=== PATIENT | female | born 1940 | race Caucasian/White ===

== ENCOUNTER 2021-01-04 09:12 | Inpatient (IN) | payer MEDICARE ==
[2021-01-04 09:53] LABS: #Basophils 0.1 10x3/uL (0.0-0.2); #Eosinphils 0.1 10x3/uL (0.0-0.5); #Neutrophils 9.2 10x3/uL (1.5-8.4); %Basophils 0.4 % (0.0-2.0); %Lymphocytes 13.1 % (18.0-47.0); %Monocytes 8.1 % (0.0-10.0); %Neutrophils 76.8 % (40.0-75.0); Hemoglobin 13.1 g/dL (12.0-15.5); Mean Corpuscular HGB CONC 31.6 g/dL (32.0-36.0); Mean Corpuscular Hemoglobin 30.4 pg (27.0-33.0); Mean Corpuscular Volume 96.1 fl (81.6-98.3); Platelet Count 348 10x3/uL (150-450); RBC Distribution Width 12.5 % (11.5-14.5); Red Blood Cell (RBC) Count 4.31 10x6/uL (3.90-5.03); White Blood Cell (WBC) Count 11.9 10x3/uL (3.5-10.5)
[2021-01-04 10:23] LABS: ALT (SGPT) 17 U/L (8-55); AST (SGOT) 20 U/L (5-34); Albumin 4.1 g/dL (3.4-4.8); Alkaline Phosphatase 57 U/L (40-110); Anion Gap 17 mmol/L (10-20); BUN (Urea Nitrogen) 19 mg/dL (9.8-20.1); Bilirubin, Total 0.5 mg/dL (0.2-1.2); CK (CPK) 115 U/L (29-168); Calc. Creatinine Clearance 0 mL/min (70-130); Calcium 9.5 mg/dL (7.8-10.44); Carbon Dioxide 24 mmol/L (23-31); Chloride 106 mmol/L (98-107); Globulin 3.2 g/dL (2.4-3.5); Glucose 159 mg/dL (83-110); Potassium 4.7 mmol/L (3.5-5.1); Protein, Total 7.3 g/dL (5.8-8.1); Sodium 142 mmol/L (136-145)
[2021-01-04] MEDS ORDERED: cefTRIAXone\\ROCEPHIN 1 GM VIAL ONE (11:01)
[2021-01-04] MEDS ORDERED: Azithromycin 500 MG VIAL ONE (11:02)
[2021-01-04 11:22] LABS: Bilirubin Neg (Negative); Blood, Urine Negative (Negative); Clarity Slightly Cloudy (Clear); Glucose, Urine (Dipstick) Normal (Negative); Ketone, Urine Negative (Negative); Leukocyte 100 (Negative); Nitrite Negative (Negative); Protein, Urine (Dipstick) 30 mg/dl (Neg-Trace); Urobilinogen Normal mg/dL (Less than 2)
[2021-01-04 11:48] LABS: Bacteria/HPF 1+ HPF (None Seen); RBC/HPF 0-3 HPF (0-3); Squamous Epithelial 0-3 HPF (0-3)
[2021-01-04 12:44] LABS: SARS-CoV-2 NAA Rapid Test Not Detected (NotDetected)
[2021-01-04] MEDS ORDERED: Ondansetron PF 4 MG/2 ML Vial IVP PRN (13:26)
[2021-01-04] MEDS ORDERED: Senokot S 8.6-50 MG TAB PO PRN (13:26)
[2021-01-04] MEDS ORDERED: Guaifenesin DM 100-10/5 ML UDCUP PO PRN (13:26)
[2021-01-04] MEDS ORDERED: Calcium Carbonate 500 MG ChewTAB PO PRN (13:26)
[2021-01-04] MEDS ORDERED: Acetaminophen 325 MG TAB PO PRN (13:26)
[2021-01-04] MEDS ORDERED: Bisacodyl 5 MG TAB PO PRN (13:26)
[2021-01-04] MEDS ORDERED: cefTRIAXone\\ROCEPHIN 1 GM in Sodium Chloride 0.9% 100 ML IVPB SCH (13:30)
[2021-01-04 14:09] LABS: Troponin I Less than 0.010 ng/mL (< 0.028)
[2021-01-04 16:10] LABS: Troponin I Less than 0.010 ng/mL (< 0.028)
[2021-01-04] MEDS ORDERED: metFORMIN 500 MG TAB ONE (17:08)
[2021-01-04] MEDS: metFORMIN 500 MG TAB PO SCH (17:12)
[2021-01-04] MEDS: Simvastatin 10 MG TAB PO SCH (21:42)
[2021-01-04] MEDS: Calcium Carbonate 600 MG + Vit D TAB PO SCH (21:42)
[2021-01-04 22:27] VITALS: BMI 35.2
[2021-01-05 03:53] LABS: #Eosinphils 0.2 10x3/uL (0.0-0.5); #Monocytes 1.1 10x3/uL (0.0-1.1); #Neutrophils 8.9 10x3/uL (1.5-8.4); %Basophils 0.3 % (0.0-2.0); %Eosinophils 1.3 % (0.0-6.0); %Lymphocytes 13.4 % (18.0-47.0); %Monocytes 9.3 % (0.0-10.0); %Neutrophils 75.2 % (40.0-75.0); Hemoglobin 11.6 g/dL (12.0-15.5); Mean Corpuscular HGB CONC 31.9 g/dL (32.0-36.0); Mean Corpuscular Hemoglobin 30.9 pg (27.0-33.0); Mean Corpuscular Volume 96.8 fl (81.6-98.3); Mean Platelet Volume 11.7 fl (7.4-10.4); Platelet Count 302 10x3/uL (150-450); RBC Distribution Width 12.7 % (11.5-14.5); Red Blood Cell (RBC) Count 3.76 10x6/uL (3.90-5.03); White Blood Cell (WBC) Count 11.8 10x3/uL (3.5-10.5)
[2021-01-05 03:58] LABS: Lactic Acid 2.2 mmol/L (0.5-2.2)
[2021-01-05 03:59] LABS: Anion Gap 15 mmol/L (10-20); BUN (Urea Nitrogen) 14 mg/dL (9.8-20.1); Calc. Creatinine Clearance 74 mL/min (70-130); Calcium 9.6 mg/dL (7.8-10.44); Carbon Dioxide 22 mmol/L (23-31); Chloride 110 mmol/L (98-107); Glucose 116 mg/dL (83-110); Potassium 4.6 mmol/L (3.5-5.1); Sodium 142 mmol/L (136-145)
[2021-01-05] MEDS: metFORMIN 500 MG TAB PO SCH ×2 (08:45→16:45)
[2021-01-05] MEDS: Magnesium Oxide 400 MG TAB PO SCH (09:45)
[2021-01-05] MEDS: NIFEdipine XL 60 MG TAB PO SCH (09:45)
[2021-01-05] MEDS: Ramipril 5 MG CAP PO SCH (09:45)
[2021-01-05] MEDS: Cholecalciferol 1,000 UNITS (25 MCG) TAB PO SCH (09:45)
[2021-01-05] MEDS: Calcium Carbonate 600 MG + Vit D TAB PO SCH ×2 (09:45→21:53)
[2021-01-05] MEDS: Aspirin 81 mg Enteric Coated Tablet PO SCH (09:45)
[2021-01-05] MEDS ORDERED: metFORMIN 500 MG TAB ONE (10:05)
[2021-01-05] MEDS ORDERED: Aspirin Chewable 81 MG TAB ONE (10:05)
[2021-01-05] MEDS ORDERED: Cholecalciferol 1,000 UNITS (25 MCG) TAB ONE (10:31)
[2021-01-05] MEDS ORDERED: Azithromycin 500 MG VIAL ONE (11:21)
[2021-01-05] MEDS ORDERED: cefTRIAXone\\ROCEPHIN 1 GM VIAL ONE (11:21)
[2021-01-05] MEDS: Azithromycin 500 MG in Sodium Chloride 0.9% 250 ML 250 ML IVPB SCH (11:30)
[2021-01-05] MEDS: cefTRIAXone\\ROCEPHIN 1 GM in Sodium Chloride 0.9% 100 ML IVPB SCH (11:30)
[2021-01-05 15:02] LABS: INR-International Normal Ratio 1.1; PTT 29.6 sec (22.0-33.0); Prothrombin Time 11.7 sec (9.5-12.1)
[2021-01-05 15:11] LABS: ALT (SGPT) 17 U/L (8-55); AST (SGOT) 20 U/L (5-34); Albumin 3.6 g/dL (3.4-4.8); Alkaline Phosphatase 46 U/L (40-110); Anion Gap 13 mmol/L (10-20); BUN (Urea Nitrogen) 11 mg/dL (9.8-20.1); Bilirubin, Total 0.2 mg/dL (0.2-1.2); Calc. Creatinine Clearance 83 mL/min (70-130); Calcium 9.4 mg/dL (7.8-10.44); Carbon Dioxide 24 mmol/L (23-31); Chloride 110 mmol/L (98-107); Globulin 3.1 g/dL (2.4-3.5); Glucose 109 mg/dL (83-110); Potassium 4.1 mmol/L (3.5-5.1); Protein, Total 6.7 g/dL (5.8-8.1); Sodium 143 mmol/L (136-145)
[2021-01-05] MEDS ORDERED: Enoxaparin Sodium 40 MG/0.4 ML SYRINGE SC SCH (21:00)
[2021-01-05] MEDS: Simvastatin 10 MG TAB PO SCH (21:53)
[2021-01-06] MEDS ORDERED: Sodium Bicarbonate 2.5 MEQ/5 ML VIAL ONE (08:09)
[2021-01-06] MEDS ORDERED: Lidocaine 1% PF 5 ML VIAL ONE (08:09)
[2021-01-06 11:27] LABS: Body Fluid Source Pleural Fluid
[2021-01-06 11:28] LABS: BF Color Yellow; Clarity Hazy (Clear); Tube # EDTA
[2021-01-06] MEDS: NIFEdipine XL 60 MG TAB PO SCH (13:29)
[2021-01-06] MEDS: Cholecalciferol 1,000 UNITS (25 MCG) TAB PO SCH (13:30)
[2021-01-06] MEDS: Magnesium Oxide 400 MG TAB PO SCH (13:30)
[2021-01-06] MEDS: Aspirin 81 mg Enteric Coated Tablet PO SCH (13:30)
[2021-01-06] MEDS: Calcium Carbonate 600 MG + Vit D TAB PO SCH ×2 (13:30→20:53)
[2021-01-06] MEDS: Ramipril 5 MG CAP PO SCH (13:32)
[2021-01-06 15:21] LABS: ALT (SGPT) 14 U/L (8-55); AST (SGOT) 25 U/L (5-34); Albumin 3.6 g/dL (3.4-4.8); Alkaline Phosphatase 47 U/L (40-110); Anion Gap 15 mmol/L (10-20); BUN (Urea Nitrogen) 12 mg/dL (9.8-20.1); Bilirubin, Total 0.3 mg/dL (0.2-1.2); Calc. Creatinine Clearance 81 mL/min (70-130); Calcium 9.3 mg/dL (7.8-10.44); Carbon Dioxide 22 mmol/L (23-31); Chloride 109 mmol/L (98-107); Globulin 3.1 g/dL (2.4-3.5); Glucose 113 mg/dL (83-110); Protein, Total 6.7 g/dL (5.8-8.1); Sodium 142 mmol/L (136-145)
[2021-01-06] MEDS: metFORMIN 500 MG TAB PO SCH ×2 (16:10→18:50)
[2021-01-06] MEDS: Azithromycin 500 MG in Sodium Chloride 0.9% 250 ML 250 ML IVPB SCH (16:14)
[2021-01-06] MEDS: cefTRIAXone\\ROCEPHIN 1 GM in Sodium Chloride 0.9% 100 ML IVPB SCH (16:15)
[2021-01-06] MEDS ORDERED: cefTRIAXone\\ROCEPHIN 1 GM in Sodium Chloride 0.9% 100 ML IVPB SCH (17:00)
[2021-01-06] MEDS ORDERED: Azithromycin 500 MG in Sodium Chloride 0.9% 250 ML 250 ML IVPB SCH (17:00)
[2021-01-06] MEDS ORDERED: Azithromycin 500 MG VIAL ONE (18:10)
[2021-01-06] MEDS: Simvastatin 10 MG TAB PO SCH (20:53)
[2021-01-06 21:44] LABS: Pleural Fluid, Protein 4.3 g/dL
[2021-01-07 04:52] LABS: Legionella Urinary Ag Negative (Negative); Strep pneumo Urine Ag NEGATIVE (NEGATIVE)
[2021-01-07 05:21] LABS: ALT (SGPT) 15 U/L (8-55); AST (SGOT) 28 U/L (5-34); Albumin 3.4 g/dL (3.4-4.8); Alkaline Phosphatase 43 U/L (40-110); Anion Gap 14 mmol/L (10-20); BUN (Urea Nitrogen) 10 mg/dL (9.8-20.1); Bilirubin, Total 0.4 mg/dL (0.2-1.2); Calc. Creatinine Clearance 81 mL/min (70-130); Calcium 9.4 mg/dL (7.8-10.44); Carbon Dioxide 22 mmol/L (23-31); Chloride 109 mmol/L (98-107); Glucose 117 mg/dL (83-110); Potassium 3.9 mmol/L (3.5-5.1); Protein, Total 6.4 g/dL (5.8-8.1); Sodium 141 mmol/L (136-145)
[2021-01-07] MEDS: Cholecalciferol 1,000 UNITS (25 MCG) TAB PO SCH (09:23)
[2021-01-07] MEDS: Calcium Carbonate 600 MG + Vit D TAB PO SCH (09:23)
[2021-01-07] MEDS: Magnesium Oxide 400 MG TAB PO SCH (09:23)
[2021-01-07] MEDS: metFORMIN 500 MG TAB PO SCH (09:23)
[2021-01-07] MEDS: NIFEdipine XL 60 MG TAB PO SCH (09:24)
[2021-01-07] MEDS: Aspirin 81 mg Enteric Coated Tablet PO SCH (09:24)
[2021-01-07] MEDS: Ramipril 5 MG CAP PO SCH (09:29)
[2021-01-07 13:34] VITALS: BP 145/68; TEMP 98.1
== END 2021-01-07 15:57 | disposition home or self-care (01) | DRG 871 ==
LOC: CSHERS 09:12 → CSHERHOLD 13:40 → INTOOBSV 13:40 → OBSVTOIN 01-05 14:40 → CSHTELE 01-05 14:49
PROVIDERS: ADMIT Internal Medicine; ATTEND Family Medicine
PROC: 0W9B3ZZ Drainage of Left Pleural Cavity, Percutaneous Approach (ICD-10-PCS; principal; 2021-01-06)
DX: A41.9 Sepsis, unspecified organism (principal); J18.9 Pneumonia, unspecified organism; J96.01 Acute respiratory failure with hypoxia; J91.8 Pleural effusion in other conditions classified elsewhere; E11.9 Type 2 diabetes mellitus without complications; E78.5 Hyperlipidemia, unspecified; E55.9 Vitamin D deficiency, unspecified; I10 Essential (primary) hypertension; Z20.822 Contact with and (suspected) exposure to COVID-19
CPT/HCPCS: 0240U; 36415; 36416; 71045; 71046; 76942; 80048; 80053; 81003; 81015; 82150; 82465; 82550; 82945; 83605; 83615; 83880; 84145; 84157; 84484; 85025; 85610; 85730; 87040; 87070; 87086; 87205; 87449; 87899; 88112; 88305; 89051; 93005; 93306; 94640; 94760; 96365; 96367; 96376; G0378; J0456; J0696; J3490; J7050; J7620

== ENCOUNTER 2021-06-21 10:09 | Outpatient (CLI) | payer MEDICARE | END 2021-06-21 10:10 | disposition home or self-care (01) | LOC: CSHMAMMO 10:09 | PROVIDERS: ATTEND Student in an Organized Health Care Education/Training Program | DX: Z12.31 Encounter for screening mammogram for malignant neoplasm of breast (principal); Z80.3 Family history of malignant neoplasm of breast; Z91.89 Other specified personal risk factors, not elsewhere classified | CPT/HCPCS: 77063; 77067 ==

== ENCOUNTER 2022-08-27 11:20 | Outpatient (CLI) | payer MEDICARE | END 2022-08-27 11:21 | disposition home or self-care (01) | LOC: CSHMAMMO 11:20 | PROVIDERS: ATTEND Student in an Organized Health Care Education/Training Program | DX: Z12.31 Encounter for screening mammogram for malignant neoplasm of breast (principal); Z80.3 Family history of malignant neoplasm of breast; Z91.89 Other specified personal risk factors, not elsewhere classified | CPT/HCPCS: 77063; 77067 ==

== ENCOUNTER 2023-09-13 10:35 | Outpatient (CLI) | payer MEDICARE | END 2023-09-13 10:36 | disposition home or self-care (01) | LOC: CSHMAMMO 10:35 | PROVIDERS: ATTEND Student in an Organized Health Care Education/Training Program | DX: Z12.31 Encounter for screening mammogram for malignant neoplasm of breast (principal); Z91.89 Other specified personal risk factors, not elsewhere classified; Z80.3 Family history of malignant neoplasm of breast | CPT/HCPCS: 77063; 77067 ==